=== PATIENT | male | born 1985 | race African-American/Black ===

== ENCOUNTER 2016-11-04 13:43 | Emergency (ER) | payer SELFPAY ==
[2016-11-04] MEDS ORDERED: NORMAL SALINE 1000 ML 1,000 ML IV ONE (14:33)
--- NOTE | 2016-11-04 14:35 | ER Document Report ---
ED Medical Screen (RME) - General Chief Complaint: Vomiting Stated Complaint: WEAKNESS Time Seen by Provider: 11/04/16 14:32 Mode of Arrival: Wheelchair Information source: Patient TRAVEL OUTSIDE OF THE [place] IN LAST 30 DAYS: No - HPI Patient complains to provider of: weakness Onset: Other - pt states he has had episodes of weakness for the past several days. Works in the kitchen at [employer] -- feels like he is dehydrated - Related Data Allergies/Adverse Reactions: No Known Allergies Allergy (Verified 11/04/16 13:45) Past Medical History Renal/ Medical History: Denies: Hx Peritoneal Dialysis Physical Exam - Vital signs Vitals: Temp Pulse Resp BP Pulse Ox 98.3 F 81 16 109/93 H 98 11/04/16 13:45 11/04/16 13:45 11/04/16 13:45 11/04/16 13:45 11/04/16 13:45 Course - Vital Signs Vital signs: Temp Pulse Resp BP Pulse Ox 98.3 F 81 16 109/93 H 98 11/04/16 13:45 11/04/16 13:45 11/04/16 13:45 11/04/16 13:45 11/04/16 13:45
[2016-11-04 15:02] LABS: ABSOLUTE BASOPHILS # (AUTO) 0.1 10^3/uL (0.0-0.2); ABSOLUTE EOSINOPHILS # (AUTO) 0.1 10^3/uL (0.0-0.6); ABSOLUTE LYMPHOCYTES (AUTO) 1.9 10^3/uL (0.5-4.7); ABSOLUTE MONOCYTES (AUTO) 0.7 10^3/uL (0.1-1.4); ABSOLUTE NEUT (AUTO) 5.2 10^3/uL (1.7-8.2); BASOPHILS % (AUTO) 0.8 % (0-2); HEMATOCRIT 53.3 % (37.9-51.0); HEMOGLOBIN 17.8 g/dL (13.5-17.0); HGB HCT DIFFERENCE 0.1; LYMPHOCYTES % (AUTO) 24.1 % (13-45); MEAN CORPUSCULAR HEMOGLOBIN 31.2 pg (27.0-33.4); MEAN CORPUSCULAR HGB CONC 33.5 g/dL (32.0-36.0); MEAN CORPUSCULAR VOLUME 93 fl (80-97); MONOCYTES % (AUTO) 8.7 % (3-13); RED BLOOD COUNT 5.71 10^6/uL (4.35-5.55); RED CELL DISTRIBUTION WIDTH 14.3 % (11.5-14.0); SEGMENTED NEUTROPHILS % (AUTO) 65.4 % (42-78)
[2016-11-04 15:07] LABS: APPEARANCE,URINE SLIGHTLY-CLOUDY; BILIRUBIN,URINE NEGATIVE (NEGATIVE); GLUCOSE, URINE NEGATIVE (NEGATIVE); KETONES,URINE NEGATIVE (NEGATIVE); LEUKOCYTE ESTERASE,URINE TRACE (NEGATIVE); NITRITE,URINE NEGATIVE (NEGATIVE); PROTEIN,URINE 30 mg/dL (NEGATIVE); URINE SPECIFIC GRAVITY 1.032; UROBILINOGEN,URINE NEGATIVE mg/dL (<2.0)
[2016-11-04 15:18] LABS: URINE BARBITURATES SCREEN NEGATIVE; URINE METHADONE SCREEN NEGATIVE; URINE OPIATES LOW NEGATIVE; URINE PHENCYCLIDINE SCREEN NEGATIVE
[2016-11-04 15:21] LABS: ALANINE AMINOTRANSFERASE 79 U/L (21-72); ALBUMIN 4.8 g/dL (3.5-5.0); ALKALINE PHOSPHATASE 76 U/L (38-126); ANION GAP 13 (5-19); ASPARTATE AMINO TRANSFERASE 45 U/L (17-59); BILIRUBIN,DIRECT 0.4 mg/dL (0.0-0.4); BILIRUBIN,TOTAL 0.8 mg/dL (0.2-1.3); BLOOD UREA NITROGEN 14 mg/dL (7-20); CALCIUM 9.8 mg/dL (8.4-10.2); CARBON DIOXIDE 23 mmol/L (22-30); CHLORIDE 105 mmol/L (98-107); CREATININE RESULT 1.07 mg/dL (0.52-1.25); GLUCOSE 104 mg/dL (75-110); SODIUM 140.9 mmol/L (137-145); TOTAL PROTEIN 8.7 g/dL (6.3-8.2)
--- NOTE | 2016-11-04 15:28 | ER Document Report ---
ED General - General Chief Complaint: Vomiting Stated Complaint: WEAKNESS Time Seen by Provider: 11/04/16 14:32 Mode of Arrival: Wheelchair Notes: This is a 31-year-old man by medical history who presents to the emergency room with weak, lightheadedness, not feeling well waking up in the morning. 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 He denies any recent fevers, chills, nausea vomiting. TRAVEL OUTSIDE OF THE [place] IN LAST 30 DAYS: No - HPI Onset: Other - Past 2 months Onset/Duration: Gradual Quality of pain: No pain Severity: None Pain Level: Denies Associated symptoms: denies: Chest pain, Fever, Shortness of breath Exacerbated by: Denies Relieved by: Denies Similar symptoms previously: No Recently seen / treated by doctor: No - Related Data Allergies/Adverse Reactions: No Known Allergies Allergy (Verified 11/04/16 13:45) Past Medical History - General Information source: Patient - Social History Smoking Status: Current Every Day Smoker Cigarette use (# per day): Yes - 1ppd Chew tobacco use (# tins/day): No Frequency of alcohol use: None Drug Abuse: None Lives with: Family Family History: Reviewed & Not Pertinent Patient has suicidal ideation: No Patient has homicidal ideation: No - Medical History Medical History: Negative Renal/ Medical History: Denies: Hx Peritoneal Dialysis Surgical Hx: Negative Review of Systems - Review of Systems Constitutional: denies: Chills, Fever EENT: No symptoms reported Cardiovascular: No symptoms reported Respiratory: No symptoms reported Gastrointestinal: No symptoms reported Genitourinary: No symptoms reported Male Genitourinary: No symptoms reported Musculoskeletal: No symptoms reported Skin: No symptoms reported Hematologic/Lymphatic: No symptoms reported Neurological/Psychological: See HPI Physical Exam - Vital signs Vitals: Temp Pulse Resp BP Pulse Ox 98.3 F 81 16 109/93 H 98 11/04/16 13:45 11/04/16 13:45 11/04/16 13:45 11/04/16 13:45 11/04/16 13:45 Notes: Physical exam: GENERAL: 31-year-old man, alert and oriented 3, no acute distress HEAD: Atraumatic, normocephalic. EYES: Pupils equal round and reactive to light, extraocular movements intact, sclera anicteric, conjunctiva are normal. ENT: TMs normal, nares patent, oropharynx clear without exudates. Moist mucous membranes. NECK: Normal range of motion, supple without lymphadenopathy or JVD. LUNGS: Breath sounds clear to auscultation bilaterally and equal. No wheezes rales or rhonchi. HEART: Regular rate and rhythm without murmurs, rubs or gallops. ABDOMEN: Soft, normoactive bowel sounds. No tenderness to palpation. No guarding, no rebound. No masses appreciated. EXTREMITIES: Normal range of motion, no pitting or edema. No clubbing or cyanosis. NEUROLOGICAL: Cranial nerves II through XII grossly intact. Normal speech, normal gait. PSYCH: Normal mood, normal affect. SKIN: Warm, Dry, normal turgor, no rashes or lesions noted. Course - Vital Signs Vital signs: Temp Pulse Resp BP Pulse Ox 98.7 F 74 18 133/89 H 99 11/04/16 18:22 11/04/16 18:22 11/04/16 18:22 11/04/16 18:22 11/04/16 18:22 - Laboratory Result Diagrams: 11/04/16 14:50 11/04/16 14:50 Laboratory results interpreted by me: 11/04/16 11/04/16 11/04/16 14:50 14:50 14:50 RBC 5.71 H Hgb 17.8 H Hct 53.3 H RDW 14.3 H ALT 79 H Total Protein 8.7 H Urine Protein 30 H Urine Blood MODERATE H Ur Leukocyte Esterase TRACE H - EKG Interpretation by Me Rate: Normal Rhythm: NSR - EKG shows normal sinus rhythm with a ventricular rate of 72, no acute ST-T wave changes Discharge - Discharge Clinical Impression: Fatigue Qualifiers: Fatigue type: unspecified Qualified Code(s): R53.83 - Other fatigue Condition: Stable Disposition: HOME, SELF-CARE Additional Instructions: Recommendations: As Discussed, your anemia studies were good, your kidney tests were normal and your electrolytes look good. Rest, Drink plenty of fluids. Try activia probiotics twice daily for the next 2 weeks. Try smoothies with fruit and Kale or spinach Try to cut down on the cigars: It is a stimulant and will mess with your sleep patterns. In the [facility]: I left the number on the chart. Copy of your lab tests when you go to that appointment Forms: Return to Work Referrals: [facility] [Provider Group] - Follow up as needed
[2016-11-04 16:19] LABS: THYROID STIMULATING HORMONE 3.16 uIU/mL (0.47-4.68)
[2016-11-04 18:28] VITALS: BP 133/89
--- NOTE | 2016-11-04 20:00 | EKG REPORT ---
SEVERITY:- OTHERWISE NORMAL ECG - SINUS RHYTHM : Confirmed by: Karthik Rajput MD 04-Nov-2016 19:59:47
== END 2016-11-04 18:28 | disposition home or self-care (01) ==
LOC: ER 13:43
DX: R53.83 Other fatigue (principal); R53.1 Weakness; R42 Dizziness and giddiness; F17.210 Nicotine dependence, cigarettes, uncomplicated
CPT/HCPCS: 93005; 99284; 36415; 84439; 84443; 85025; 80053; 81001; 80307; 93010; J7030

== ENCOUNTER 2017-11-19 19:22 | Emergency (ER) | payer SELFPAY ==
[2017-11-19 19:28] VITALS: BP 134/86
[2017-11-19] MEDS ORDERED: NEOMY SULF/POLYMYX B SULF/HC OTIC SUSP 10 ML AS ONE (20:04)
--- NOTE | 2017-11-19 20:16 | ER Document Report ---
ED General - General Chief Complaint: Ear Pain Stated Complaint: EAR PAIN Time Seen by Provider: 11/19/17 19:57 TRAVEL OUTSIDE OF THE [place] IN LAST 30 DAYS: No - HPI Notes: 32-year-old male presents with left ear pain. Patient states proximate 4 days ago he was cleaning his ear out with a Q-tip when he pulled it out he thinks part of it was missing. He now comes in complaining of ear pain. Throbbing aching and burning. Difficulty hearing at times. No other modifying factors, no other associated symptoms, no other provocative or palliative factors. - Related Data Allergies/Adverse Reactions: No Known Allergies Allergy (Verified 11/04/16 13:45) Past Medical History - Social History Smoking Status: Never Smoker Frequency of alcohol use: None Family History: Reviewed & Not Pertinent Patient has suicidal ideation: No Patient has homicidal ideation: No - Medical History Medical History: Negative Renal/ Medical History: Denies: Hx Peritoneal Dialysis Past Surgical History: Reports: Hx Orthopedic Surgery - Lt arm Review of Systems - Review of Systems Notes: Review of systems as in history of present illness, otherwise no significant headache, chest pain, abdominal pain. Physical Exam - Vital signs Vitals: Temp Pulse Resp BP Pulse Ox 98.4 F 74 16 134/86 H 100 11/19/17 19:26 11/19/17 19:26 11/19/17 19:26 11/19/17 19:26 11/19/17 19:26 - Notes Notes: General: Well devloped, no acute distress. HEENT: Normocephalic, atraumatic. Pupils equal round reactive to light. Mucosa moist. No JVD. Left ear shows erythema and debris. Some canal swelling. There is no obvious foreign body noted. Tympanic membrane is intact. Chest: No trauma, normal excursion. Respiratory: Good air exchange, normal excursion. Cardiac: Regular rhythm Abdomen: Soft, benign. Nondistended. Back: No asymmetry or gross abnormality. Motor: Grossly normal power and tone. Neurologic: Alert, nonfocal. Vascular: Well perfused Skin: No petechiae or purpura Course - Re-evaluation Re-evalutation: 11/19/17 20:13 Well-appearing male with otitis externa. There is no clear evidence of foreign body. At this point, I am not inclined to blindly trying grasp something. We will start him on Cortisporin Otic, refer to ENT. - Vital Signs Vital signs: Temp Pulse Resp BP Pulse Ox 98.4 F 74 16 134/86 H 100 11/19/17 19:26 11/19/17 19:26 11/19/17 19:26 11/19/17 19:26 11/19/17 19:26 Discharge - Discharge Clinical Impression: Otitis externa Qualifiers: Otitis externa type: unspecified type Chronicity: acute Laterality: left Qualified Code(s): H60.502 - Unspecified acute noninfective otitis externa, left ear Condition: Good Disposition: HOME, SELF-CARE Instructions: Otitis Externa ([facility]) Prescriptions: Neomy Sulf/Polymyx B Sulf/Hc [Cortisporin Otic Susp] 4 drop LFT_EAR Q4 #1 bottle Referrals: LAUREN FUENTES DO [ASSOCIATE] - Follow up tomorrow
== END 2017-11-19 20:26 | disposition home or self-care (01) ==
LOC: ER 19:22
DX: H60.502 Unspecified acute noninfective otitis externa, left ear (principal); H92.02 Otalgia, left ear
CPT/HCPCS: 99282; J3490

== ENCOUNTER 2017-11-21 16:30 | Emergency (ER) | payer SELFPAY ==
[2017-11-21 16:36] VITALS: BP 126/98
--- NOTE | 2017-11-21 17:04 | ER Document Report ---
HPI - HPI Patient complains to provider of: left ear pain Onset: Other - weekend Onset/Duration: Persistent Pain Level: 5 Context: 32 yo male c/o left ear pain after using q tip, seen sunday and prescribed cortisporin otic drops, not any better. Feel full. No external ear swelling. no fever. Associated Symptoms: None Exacerbated by: Denies Relieved by: Denies - ROS ROS below otherwise negative: Yes Systems Reviewed and Negative: Yes All other systems reviewed and negative Past Medical History - General Information source: Patient - Social History Smoking Status: Unknown if Ever Smoked Frequency of alcohol use: None Drug Abuse: None Lives with: Spouse/Significant other Family History: Reviewed & Not Pertinent - Medical History Medical History: Negative Renal/ Medical History: Denies: Hx Peritoneal Dialysis Surgical Hx: Negative Past Surgical History: Reports: Hx Orthopedic Surgery - Lt arm Vertical Provider Document - CONSTITUTIONAL Agree With Documented VS: Yes Exam Limitations: No Limitations General Appearance: No Apparent Distress - INFECTION CONTROL TRAVEL OUTSIDE OF THE [place] IN LAST 30 DAYS: No - HEENT HEENT: negative: Conjuctival Injection, Tympanic Membrane Red Notes: mild tender left ear canal, old scars typanic membrane, minimal serous OM.M. Right ear is normal. - NECK Neck: Supple. negative: Lymphadenopathy-Left, Lymphadenopathy-Right - NEURO Level of Consciousness: Alert - DERM Integumentary: No Rash Course - Vital Signs Vital signs: Temp Pulse Resp BP Pulse Ox 99.2 F 75 14 126/98 H 99 11/21/17 16:36 11/21/17 16:36 11/21/17 16:36 11/21/17 16:36 11/21/17 16:36 Discharge - Discharge Clinical Impression: Serous otitis media Qualifiers: Chronicity: acute Laterality: left Recurrence: not specified as recurrent Qualified Code(s): H65.02 - Acute serous otitis media, left ear Otitis externa, left Qualifiers: Otitis externa type: unspecified type Chronicity: acute Qualified Code(s): H60.502 - Unspecified acute noninfective otitis externa, left ear Condition: Good Disposition: HOME, SELF-CARE Instructions: Acetaminophen, Use of Ear Drops ([facility]), Ibuprofen (General) ([facility]) , Otitis Externa ([facility]), Serous Otitis Media ([facility]) Additional Instructions: warm compress switch to gentamycin opthalmic drops to the left ear 2 drops every 4 hours stop the cortisporin otic drops motrin for pain over the counter mucicnex decongestant over the counter antihistamine may help get the fluid out Prescriptions: Ibuprofen [Motrin 600 mg Tablet] 600 mg PO Q8HP PRN #30 tablet PRN Reason: Gentamicin Sulfate 2 drop Q4H #5 ml Forms: Return to Work Referrals: LAUREN FUENTES DO [ASSOCIATE] - Follow up as needed
== END 2017-11-21 17:41 | disposition home or self-care (01) ==
LOC: ER 16:30
DX: H65.02 Acute serous otitis media, left ear (principal); H60.502 Unspecified acute noninfective otitis externa, left ear; H92.02 Otalgia, left ear
CPT/HCPCS: 99282

== ENCOUNTER 2018-04-29 18:17 | Emergency (ER) | payer SELFPAY ==
[2018-04-29 21:05] LABS: A TYPE INFLUENZA AG NEGATIVE (NEGATIVE); B INFLUENZA AG NEGATIVE (NEGATIVE)
[2018-04-29] MEDS ORDERED: GUAIFENESIN 600 MG TABLET.SA PO ONE (21:13)
[2018-04-29] MEDS ORDERED: KETOROLAC TROMETHAMINE 10 MG TABLET PO ONE (21:13)
[2018-04-29] MEDS ORDERED: IPRATROPIUM/ALBUTEROL 0.5-2.5 MG/3 ML AMPUL NEB ONE (21:13)
--- NOTE | 2018-04-29 21:41 | RADIOLOGY REPORT (SQ) ---
EXAM DESCRIPTION: XR CHEST 2 VIEWS COMPLETED DATE/TME: 04/29/2018 21:13 CLINICAL HISTORY: 33 years, Male, cough fever COMPARISON: None. NUMBER OF VIEWS: 2 TECHNIQUE: Frontal and lateral views of the chest LIMITATIONS: None. FINDINGS: The heart size is normal. Lungs are clear. No pneumothorax IMPRESSION: Negative chest copyright 2010 [employer]- All Rights Reserved
--- NOTE | 2018-04-29 22:11 | ER Document Report ---
ED General - General Chief Complaint: Flu Symptoms Stated Complaint: FLU SYMPTOMS Time Seen by Provider: 04/29/18 21:12 Mode of Arrival: Ambulatory Information source: Patient, [facility] Records Notes: 33-year-old male with no reported past medical history presents with complaint of cough, nasal congestion, sore throat, but IV aches. Patient states this is been ongoing for 3-4 days. He has been taking [id number] TheraFlu without relief. Patient admits to subjective fever, chills, sweats. He denies chest pain, shortness of breath, abdominal pain, vomiting, diarrhea. TRAVEL OUTSIDE OF THE [place] IN LAST 30 DAYS: No - HPI Onset: Other Onset/Duration: Persistent Quality of pain: Achy Associated symptoms: Body/muscle aches, Chills, Nonproductive cough, Fever, Sinus pain/drainage Exacerbated by: Denies Relieved by: Denies Similar symptoms previously: No Recently seen / treated by doctor: No - Related Data Allergies/Adverse Reactions: No Known Allergies Allergy (Verified 11/04/16 13:45) Past Medical History - General Information source: Patient - Social History Smoking Status: Current Every Day Smoker Cigarette use (# per day): Yes - 10 Chew tobacco use (# tins/day): No Smoking Education Provided: Yes - Smoking cessation counseling was provided for 4 minutes at the bedside Frequency of alcohol use: None Drug Abuse: None Lives with: Family Family History: Reviewed & Not Pertinent Patient has suicidal ideation: No Patient has homicidal ideation: No - Medical History Medical History: Negative Renal/ Medical History: Denies: Hx Peritoneal Dialysis Past Surgical History: Reports: Hx Orthopedic Surgery - Lt arm Review of Systems - Review of Systems Notes: REVIEW OF SYSTEMS: CONSTITUTIONAL : Denies weight loss, recent hospitalizations. EENT: Denies visual changes, eye pain. Denies oral lesions, difficulty swallowing. CARDIOVASCULAR: Denies chest pain. Denies palpitations. Denies lower extremity edema. RESPIRATORY: Denies shortness of breath, wheezing. GASTROINTESTINAL: Denies abdominal pain or distention. Denies nausea, vomiting, or diarrhea. Denies blood in vomitus, stools, or per rectum. Denies black, tarry stools. Denies constipation. GENITOURINARY: Denies difficulty urinating, painful urination, frequency, blood in urine, testicular pain or penile discharge. MUSCULOSKELETAL: Denies back or neck pain or stiffness. Denies joint pain or swelling. SKIN: Denies rash, lesions or sores. HEMATOLOGIC : Denies easy bruising or bleeding. LYMPHATIC: Denies swollen glands. NEUROLOGICAL: Denies confusion or altered mental status. Denies loss of consciousness. Denies dizziness or lightheadedness. Denies headache. Denies weakness or paralysis. Denies problems difficulty with ambulation, slurred speech. Denies sensory loss, numbness, or tingling. Denies seizures. PSYCHIATRIC: Denies anxiety or stress. Denies depression, suicidal ideation, or Physical Exam - Vital signs Vitals: Temp Pulse Resp BP Pulse Ox 98.6 F 88 20 139/78 H 97 04/29/18 18:33 04/29/18 18:33 04/29/18 18:33 04/29/18 18:33 04/29/18 18:33 - Notes Notes: PHYSICAL EXAMINATION: GENERAL: Well-appearing, well-nourished and in no acute distress. HEAD: Atraumatic, normocephalic. EYES: Pupils equal round and reactive to light, extraocular movements intact, sclera anicteric, conjunctiva are normal. ENT: Nares patent, oropharynx clear without exudates. Moist mucous membranes. NECK: Normal range of motion, supple without lymphadenopathy LUNGS: Breath sounds clear to auscultation bilaterally and equal. No wheezes rales or rhonchi. HEART: Regular rate and rhythm without murmurs ABDOMEN: Soft, nontender, nondistended abdomen. No guarding, no rebound. No masses appreciated. Musculoskeletal: Normal range of motion, no pitting or edema. No cyanosis. NEUROLOGICAL: Cranial nerves grossly intact. Normal speech, normal gait. Normal sensory, motor exams PSYCH: Normal mood, normal affect. SKIN: Warm, Dry, normal turgor, no rashes or lesions noted. Course - Re-evaluation Re-evalutation: Laboratory 04/29/18 20:38 Influenza A (Rapid) NEGATIVE Influenza B (Rapid) NEGATIVE Temp Pulse Resp BP Pulse Ox 98.7 F 88 20 132/80 H 99 04/29/18 23:22 04/29/18 23:22 04/29/18 23:22 04/29/18 23:22 04/29/18 23:22 Chest X-Ray 04/29/18 21:13 IMPRESSION: Negative chest copyright 2011 [employer]- All Rights Reserved 05/01/18 15:27 Presentation is most consistent with a viral upper respiratory infection. Patient is overall well appearance, vitals within normal limits, well-hydrated. Patient denies any headache, neck pain, and has no evidence of meningismus on examination. Lungs are clear bilaterally. No evidence of respiratory distress. Based on clinical exam and history, I do not suspect an acute pneumonia, meningitis, strep pharyngitis, or an acute encephalitis. No laboratory or imaging testing is indicated at this time. Will discharge patient with return precautions and followup recommendations. They are in agreement this plan have verbalized understanding return precautions. Patient was evaluated and treated as appropriate for the patient's presenting symptoms and complaint, with consideration of any critical or life threatening conditions that may be associated with their obtained history and exam as noted above. All results were discussed with patient. Patient provided the opportunity to ask questions, and express concerns. Patient was educated on treatments based on their presumed diagnosis as noted above. At this time we will discharge the patient with return precautions and follow-up recommendations. Verbal discharge instructions given a the bedside. Medication warnings reviewed. Patient is in agreement with this plan and has verbalized understanding of return precautions. After careful consideration I feel that that patient can be safely discharged from the emergency department, they were advised to followup with a primary care physician in 2-3 days. Dictation on this chart was performed using voice recognition software and may result in unintended grammatical, spelling, syntax or errors. - Vital Signs Vital signs: Temp Pulse Resp BP Pulse Ox 98.7 F 88 20 132/80 H 99 04/29/18 23:22 04/29/18 23:22 04/29/18 23:22 04/29/18 23:22 04/29/18 23:22 - Diagnostic Test Radiology reviewed: Image reviewed, Reports reviewed Discharge - Discharge Clinical Impression: URI (upper respiratory infection) Qualifiers: URI type: unspecified URI Qualified Code(s): J06.9 - Acute upper respiratory infection, unspecified Condition: Good Disposition: HOME, SELF-CARE Instructions: Upper Respiratory Illness ([facility]), Viral Syndrome ([facility]) Additional Instructions: Your symptoms are most likely due to a viral infection it should resolve over the next 7-14 days. You should take bmyw-pbf-[id number] guanfacine per bottle instructions to help thin the mucus. For nasal congestion: I would recommend that you get irsv-oxt-wpsxlfy oxymetazoline also known is afrin. Use only per bottle instructions and be sure to never use this for more than 3 days if you can develop severe rebound congestion. You may also use tylenol or ibuprofen as needed for aches and thorat discomfort. Please be sure to drink plenty of fluids and get rest. Return to the emergency department he began having difficulty breathing, chest pain, persistent vomiting, or any other symptoms that are concerning to you. Prescriptions: Guaifenesin/Pseudoephedrne HCl [Mucinex D ER 600-60 mg Tablet] 1 each PO BID #14 tab.er.[id number] Forms: Return to Work
[2018-04-29 23:23] VITALS: BP 132/80
== END 2018-04-29 23:24 | disposition home or self-care (01) ==
LOC: ER 18:17
DX: J06.9 Acute upper respiratory infection, unspecified (principal); R05 Cough; R09.81 Nasal congestion; J02.9 Acute pharyngitis, unspecified; M79.10 Myalgia, unspecified site; J34.89 Other specified disorders of nose and nasal sinuses; F17.210 Nicotine dependence, cigarettes, uncomplicated; Z71.6 Tobacco abuse counseling
CPT/HCPCS: 94640; 99283; 87804; 71046; J3490; J7620

== ENCOUNTER 2018-05-26 16:43 | Emergency (ER) | payer OTHER ==
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
[2018-05-26] MEDS ORDERED: METHOCARBAMOL 750 MG TABLET PO ONE (18:26)
[2018-05-26] MEDS ORDERED: IBUPROFEN 800 MG TABLET PO ONE (18:34)
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
[2018-05-26 18:57] VITALS: BP 141/93
== END 2018-05-26 19:00 | disposition home or self-care (01) ==
LOC: ER 16:43
DX: S16.1XXA Strain of muscle, fascia and tendon at neck level, initial encounter (principal); M54.9 Dorsalgia, unspecified; V89.2XXA Person injured in unspecified motor-vehicle accident, traffic, initial encounter; F17.210 Nicotine dependence, cigarettes, uncomplicated
CPT/HCPCS: 99283; 72050; 72110; 72070; J3490